=== PATIENT | male | born 1990 | race Caucasian/White ===

== ENCOUNTER 2018-01-12 06:06 | Day surgery (SDC) | payer MEDICAID ==
[2018-01-12] MEDS ORDERED: ceFAZolin 2 GM/50 ML 2 GM/50 ML BAG IV ONE ×2 (06:14→09:45)
[2018-01-12] MEDS ORDERED: LACTATED RINGERS 1,000 ML IV ONE (06:35)
[2018-01-12] MEDS ORDERED: BUPIVACAINE 0.5% PF 30 ML VIAL ONE (07:16)
--- NOTE | 2018-01-12 07:42 | ANESTHESIA ---
Pre-Anesthesia VS, & Labs - Diagnosis R inguinal hernia - Procedure R inguinal hernia repair Vital Signs: Temp Pulse Resp BP Pulse Ox 36.8 C 81 18 122/72 98 01/12/18 06:25 01/12/18 06:25 01/12/18 06:25 01/12/18 06:25 01/12/18 06:25 Height 5 ft 8 in Weight (kg) 62.6 kg - NPO >8 hours - Lab Results Lab results reviewed: Yes Home Medications and Allergies Home Medications: Ambulatory Orders No Known Home Medications 01/07/18 No Known Home Medications 01/07/18 Allergies/Adverse Reactions: Allergies Allergy/AdvReac Type Severity Reaction Status Date / Time No Known Drug Allergies Allergy Verified 01/07/18 10:25 Anes History & Medical History - Anesthetic History Anesthesia Complications: reports: Post-Operative Nausea/Vomiting ([place] for lower extremity sanchez) Family history of Anesthesia Complications: Denies Family history of Malignant Hyperthermia: Denies - Medical History Cardiovascular: reports: None Pulmonary: reports: None Gastrointestinal: reports: None Urinary: reports: None Musculoskeletal: reports: None Endocrine/Autoimmune: reports: None Skin: reports: None - Surgical History Dermatologic: Debridement, Other Exam General: Alert, Oriented x3, Cooperative Dental: WNL Mouth Opening: Greater than 4 Fingerbreadths Neck Mobility: Normal Mallampati classification: I, II Thyromental Distance: greater than 6 cm Respiratory: Lungs clear, Normal breath sounds Cardiovascular: Regular rate Neurological: Normal speech Mental/Cognitive Status: Alert/Oriented X3 (pt states he feels "very groggy") Plan Anesthesia Type: General Consent for Procedure(s) Verified and Reviewed: Yes Code Status: Attempt Resuscitation ASA classification: 2-Mild systemic disease Is this case an emergency?: No
[2018-01-12] MEDS ORDERED: BUPIVACAINE 0.5% PF 30 ML VIAL INFIL ONE (09:23)
[2018-01-12] MEDS ORDERED: fentaNYL 100 MCG/2 ML VIAL IVP ONE (09:45)
[2018-01-12] MEDS ORDERED: KETOROLAC 30 MG/ML VIAL IVP ONE (09:45)
[2018-01-12] MEDS ORDERED: LIDOCAINE-MPF 2% 5 ML VIAL IM ONE (09:45)
[2018-01-12] MEDS ORDERED: PROPOFOL 200 MG/20 ML VIAL IVP ONE (09:45)
[2018-01-12] MEDS ORDERED: ONDANSETRON 4 MG/2 ML VIAL IVP ONE (09:45)
[2018-01-12] MEDS ORDERED: HYDROmorphone 0.5 MG/0.5 ML SYRINGE IVP PRN (10:09)
[2018-01-12] MEDS ORDERED: HYDROcod/ACETAM 5/325 MG TABLET PO PRN (10:09)
[2018-01-12] MEDS ORDERED: ONDANSETRON 4 MG/2 ML VIAL IVP PRN (10:09)
--- NOTE | 2018-01-12 10:13 | OPERATIVE REPORT ---
Operative Report - General Procedure Date: 01/12/18 Planned Procedure: RIGHT inguinal herniorrhaphy Pre-Op Diagnosis: RIGHT inguinal hernia Procedure Performed: RIGHT indirect inguinal herniorrhaphy with mesh Post Op Diagnosis: RIGHT indirect inguinal hernia - Procedure Note Primary Surgeon: Nazario Batista MD Anesthesia Provider: Nazario Giang MD Anesthesia Technique: General LMA, Local (30 mL 1/2% marcaine) IV Fluids (mL): 300 Estimated Blood Loss (mL): 5 Complications: None. - Other Other Information/Narrative: OPERATIVE DESCRIPTION/REPORT: After verbal and written informed consent was obtained detailing the risks of infection, bleeding requiring transfusion with its risks, nerve injury, and , and after I met with the patient confirming the surgery and the site of the surgery and after initialing the site of the surgery with a surgical marker, the patient was brought to the operative suite and placed supine on the operating table. Great care was taken to avoid pressure points to prevent press ure necrosis or nerve injury. Monitoring devices were applied along with TEDs and pneumatic compressive stockings (to prevent DVT). The patient received preoperative antibiotics for surgical prophylaxis. Dr. Nazario Giang sedated and anesthetized the patient for the entire procedure. The patient was prepped and draped in the usual sterile manner. With the patient draped my initials were clearly visible. A "time in" then confirmed that the patient was identified with 3 identifiers (name, date and medical record number), the history and physical was in the chart, the signed consent confirming the procedure was in the chart, the patient was in the correct position, the aforementioned prophylactic measures were in place or given, we had the correct personnel and equipment to complete the procedure and that anesthesia, surgery and nursing were given an opportunity to express any concerns. With the agreement of everyone in the room, we proceeded with the operation. A standard inguinal incision was made and dissection was carried down to the external oblique aponeurosis using a combination of Metzenbaum scissors and Bovie electrocautery. The external oblique aponeurosis was cleared of overlying adherent tissue, and the external ring was delineated. The external oblique was the incised with a scalpel and this incision was carried out to the external ring using Metzenbaum scissors. Having exposed the inguinal canal, the cord structures were from the canal using blunt dissection, and a [place] drain was placed around the cord structures at the level of the pubic tubercle. This [place] drain was then used to retract the cord structures as needed. Adherent cremasteric muscle was dissected free from the cord using Bovie electrocautery. The cord was then explored using a combination of sharp and blunt dissection, and the sac was found anteromedially to the cord structures. The sac was dissected free from the cord structures using a combination of blunt dissection and Bovie electrocautery. Once preperitoneal fat was encountered, the dissection stopped and the sac was high ligated with a 2-0 PDS, transected, the stump cauterized and allowed to retract back into the abdominal cavity and a medium Covidien plug (Ref# [id number], Lot#[id number], use date 2022-11-22) inserted into the internal ring. The plug was secured to the internal ring by interrupte d 2-0 PDS sutures. The Covidien enlay patch was then placed on the floor of the inguinal canal and secured in place using interrupted 0 PDS sutures to the conjoined tendon superiorly, pubic tubercle medially, and shelving edge inferiorly. By reinforcing the floor with the enlay patch, a new internal ring was thus formed. The Adrián drain was removed. The wound was then irrigated using sterile saline, and hemostasis was obtained using Bovie electrocautery. The incision in the external oblique was approximated using a 3-0 Vicryl in a running fashion, thus reforming the external ring. 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 The skin incision was approximated with 4-0 Monocryl in a subcuticular fashion. The skin was prepped with benzoin and steristrips were applied. At this point a time out was performed that confirmed that all the counts were correct, the procedure that was performed, the blood loss, the IV fluids administered, and the patients condition. A dressing was then applied. Gentle downward traction ensured that the testes were well seated in the scrotum. Having tolerated the procedure well, the patient was taken to short stay in good and stable condition. Dragon disclaimer: This document was created in part using voice recognition technology. Because of the inherent limitations of the system ([employer]'s [employer] user manual states that the licensee understands that speech recognition is a statistical process and that recognition errors are inherent in the process), occasional same sounding word substitutions and grammatical errors do occur and persist despite proofreading. Please read this document for context.
[2018-01-12] MEDS ORDERED: fentaNYL 100 MCG/2 ML VIAL ONE (10:37)
[2018-01-12] MEDS ORDERED: HYDROcod/ACETAM 5/325 MG TABLET ONE (11:05)
[2018-01-12 11:47] VITALS: BP 128/72
== END 2018-01-12 06:07 | disposition home or self-care (01) ==
LOC: SDS 06:06
PROVIDERS: ATTEND Surgery
PROC: 0YU50JZ Supplement Right Inguinal Region with Synthetic Substitute, Open Approach (ICD-10-PCS; principal; 2018-01-12 07:30)
DX: K40.90 Unilateral inguinal hernia, without obstruction or gangrene, not specified as recurrent (principal); F11.11 Opioid abuse, in remission; F17.210 Nicotine dependence, cigarettes, uncomplicated; Z72.89 Other problems related to lifestyle
CPT/HCPCS: 49505; 80320; A9270; J0690; J7120